=== PATIENT | male | born 1995 | race Caucasian/White ===

== ENCOUNTER 2019-09-23 14:56 | Emergency (ER) | payer MEDICAID ==
[~2019-09-23] VITALS: Ht 182.9 cm; Wt 66.1 kg
[~2019-09-23 14:56] MED LIST: CEPH-357 PO; CIPR2.5D18 LEFTEYE; CLIN150C8 PO; HYDR1TAB PO; MULT-785 PO; SULF-117 PO
[2019-09-23 15:27] VITALS: BP 129/82
--- NOTE | 2019-09-23 16:49 | NUR ---
Patient stated that he needed to get back to work and would not be able to stay any longer.
== END 2019-09-23 16:51 | disposition left against medical advice (07) ==
LOC: ER 14:57
DX: M79.601 Pain in right arm (principal); Z53.21 Procedure and treatment not carried out due to patient leaving prior to being seen by health care provider

== ENCOUNTER 2022-02-23 05:20 | Emergency (ER) | payer MEDICAID ==
[~2022-02-23] VITALS: Ht 182.9 cm; Wt 75.0 kg
[~2022-02-23 05:20] MED LIST changes: +CIPR2.5D14 LEFTEYE; -CIPR2.5D18 LEFTEYE
[2022-02-23] MEDS ORDERED: TETanus/Pertussis (Acell)/Diphther VAC/PF (Tdap-Adult) 0.5ml syringe IMVAC ONE (05:30)
--- NOTE | 2022-02-23 09:09 | NUR ---
NOTIFIED MD OF PT CONDITION. PT REPONDS TO PAINFUL STIMULI. SPEECH IS DIFFICULT TO UNDERSTAND. PUPILS 5MM. AIRWAY PATENT, NO RESPIRATORY SYMPTOMS. ORIENTED JUST DIFFICULT TO ROUSE.
--- NOTE | 2022-02-23 10:49 | NUR ---
PT NOT RESPONDING TO VERBAL COMMANDS. STERNAL RUB TO ROUSE PT. PT RESPONDED AND GRABBED MY WRIST. PT MOTHER AT BEDSIDE.
--- NOTE | 2022-02-23 10:59 | NUR ---
PT SNORING. PT REPOSITIONED TO UPRIGHT SITTING POSITION
[2022-02-23] MEDS ORDERED: normal saline 1000ML IV soln IVB ONE (11:35)
[2022-02-23 12:00] VITALS: BP 140/78
--- NOTE | 2022-02-23 13:00 | NUR ---
PT REFUSING CARE. PT ATTEMPTED TO LEAVE ER WITH IV IN PLACE. I WAS ABLE TO REMOVE IV AND PT LEFT OUT TO PARKING LOT. PT SEEMED CONFUSED AND WAS FOLLOWED BY MYSELF AND SECURITY FOR PT SAFETY. MD WANTED TO ASSESS PT PRIOR TO DC. PT WAS FOUND OUT LOOKING IN THE WINDOW OF WHAT HE STATED WAS HIS DADS CAR. PT WAS ESCORTED BACK IN AND HIS DAD CAME BACK TO BEDSIDE. PT LEFT PRIOR TO MD EVALUATION WITH HIS DAD.
[2022-02-23 14:05] LABS: URINE AMPHETAMINE SCREEN POSITIVE (Neg); URINE BARBITUATE SCREEN NEGATIVE (Neg); URINE BENZODIAZEPINES SCREEN POSITIVE (Neg); URINE CANNABINOID SCREEN POSITIVE (Neg); URINE COCAINE SCREEN NEGATIVE (Neg); URINE METHADONE SCREEN NEGATIVE (Neg); URINE OPIATE SCREEN POSITIVE (Neg); URINE PHENCYCLIDINE SCREEN NEGATIVE (Neg)
== END 2022-02-23 15:48 | disposition home or self-care (01) ==
LOC: ER 05:20
DX: S01.81XA Laceration without foreign body of other part of head, initial encounter (principal); F17.200 Nicotine dependence, unspecified, uncomplicated; F12.90 Cannabis use, unspecified, uncomplicated; Z72.89 Other problems related to lifestyle; Z79.2 Long term (current) use of antibiotics; Z79.899 Other long term (current) drug therapy; X58.XXXA Exposure to other specified factors, initial encounter; Y93.89 Activity, other specified; Y92.89 Other specified places as the place of occurrence of the external cause; Y99.8 Other external cause status
CPT/HCPCS: 12014; 36415; 70450; 72125; 80305; 80320; 90471; 90715; 99284; C1758; 12013